=== PATIENT | male | born 1955 | race Caucasian/White ===

== ENCOUNTER 2023-07-11 18:02 | Emergency (ER) | payer OTHER, SELFPAY ==
[2023-07-11 18:05] VITALS: BP 188/100; PULSE 109; TEMP 36.8; O2SAT 99
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
[2023-07-11 18:16] VITALS: RESP 20
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
--- NOTE | 2023-07-11 18:36 | NUR.NOTE ---
Nursing Note: Medication reconciliation completed by RN; pt unsure what medications he is taking other then he states he takes a medication for cholesterol and blood pressure consistently. [facility].
== END 2023-07-11 18:50 | disposition home or self-care (01) ==
LOC: ER 18:52
PROVIDERS: Emergency Provider Student in an Organized Health Care Education/Training Program; PCP Family Medicine
DX: F43.0 Acute stress reaction (principal); F41.9 Anxiety disorder, unspecified; R03.0 Elevated blood-pressure reading, without diagnosis of hypertension; F17.210 Nicotine dependence, cigarettes, uncomplicated
CPT/HCPCS: 99283